=== PATIENT | female | born 1990 | race Caucasian/White ===

== ENCOUNTER 2017-02-15 19:18 | Outpatient (CLI) | payer OTHER ==
[~2017-02-15] VITALS: Ht 160 cm; Wt 83.2 kg
[~2017-02-15 19:18] MED LIST: HYDR-3240 PO; IBUP200T48 PO
== END 2017-02-15 21:49 | disposition home or self-care (01) ==
LOC: LDOP 19:18
PROVIDERS: ATTEND Obstetrics & Gynecology
DX: O42.92 Full-term premature rupture of membranes, unspecified as to length of time between rupture and onset of labor (principal); Z3A.39 39 weeks gestation of pregnancy
CPT/HCPCS: 59025; 81001; 87086; 89060; 99211; G0463; Q0114

== ENCOUNTER 2017-06-27 23:07 | Emergency (ER) | payer OTHER ==
[~2017-06-27] VITALS: Ht 160 cm; Wt 71.7 kg
[~2017-06-27 23:07] MED LIST changes: +IBUP-1222 PO; +OXYC-302 PO
[2017-06-27 23:08] VITALS: BP 133/85
[2017-06-27] MEDS ORDERED: LIDOCAINE 1%, 20ML ONE (23:18)
[2017-06-27] MEDS ORDERED: DIPH,PERTUSS(ACELL),TET VAC/PF 0.5 ML IM-VACC ONE ×2 (23:24→23:30)
[2017-06-27] MEDS ORDERED: LIDOCAINE 1%, 20ML INFIL ONE (23:30)
[2017-06-28] MEDS ORDERED: BACITRACIN ZINC OINT 500U/GM, 0.9 GM ONE (00:23)
[2017-06-28] MEDS ORDERED: BACITRACIN OINT 500U/GM, 15 GM TP PRN (00:30)
== END 2017-06-28 00:30 | disposition home or self-care (01) ==
LOC: ED 23:59
DX: S61.511A Laceration without foreign body of right wrist, initial encounter (principal); W01.0XXA Fall on same level from slipping, tripping and stumbling without subsequent striking against object, initial encounter; Y93.89 Activity, other specified; Y99.8 Other external cause status; Y92.009 Unspecified place in unspecified non-institutional (private) residence as the place of occurrence of the external cause
CPT/HCPCS: 13121; 90471; 90715

== ENCOUNTER 2017-07-04 14:41 | Observation (INO) | payer OTHER ==
[~2017-07-04] VITALS: Ht 160 cm; Wt 75.0 kg
[2017-07-04] MEDS ORDERED: SODIUM CHLORIDE FLUSH 10ML SYR IVF ONE (15:00)
[2017-07-04] MEDS ORDERED: ONDANSETRON 2MG/ML, 2ML IVPush ONE (15:00)
[2017-07-04] MEDS ORDERED: ONDANSETRON 2MG/ML, 2ML ONE ×2 (15:02→20:10)
[2017-07-04 15:13] LABS: HEMATOCRIT 43.5 % (34.6-47.8); HEMOGLOBIN 15.3 g/dL (11.7-16.4); WHITE BLOOD COUNT 5.9 x10^3/uL (3.4-10)
[2017-07-04 15:23] LABS: ASPARTATE AMINO TRANSFERASE 105 U/L (15-37); BLOOD UREA NITROGEN 15 mg/dL (7-18)
[2017-07-04] MEDS ORDERED: morphine SULFATE 10 MG/ML, 1ML IVPush PRN ×2 (16:30→21:30)
[2017-07-04] MEDS ORDERED: SODIUM CHLORIDE 0.9% 1,000 ML IV ONE (17:25)
[2017-07-04] MEDS ORDERED: SODIUM CHLORIDE FLUSH 10ML SYR IVF PRN (17:30)
[2017-07-04] MEDS ORDERED: ONDANSETRON 2MG/ML, 2ML IVPush PRN ×3 (17:30→21:30)
[2017-07-04] MEDS ORDERED: MORPHINE SULFATE 4 MG/ML, 1ML IVPush PRN (17:30)
[2017-07-04] MEDS ORDERED: PROPOFOL 10 MG/ML, 20ML ONE ×2 (18:47→20:10)
[2017-07-04] MEDS ORDERED: NEOSTIGMINE 1 MG/ML, 10ML ONE ×4 (18:48→20:10)
[2017-07-04] MEDS ORDERED: ROCURONIUM 10 MG/ML,10ML ONE ×2 (18:49→20:10)
[2017-07-04] MEDS ORDERED: GLYCOPYRROLATE 0.4 MG/2 ML, 2ML ONE (18:49)
[2017-07-04] MEDS ORDERED: SUCCINYLCHOLINE 20 MG/ML, 10ML ONE ×2 (18:49→20:10)
[2017-07-04 18:55] VITALS: BP 112/77
[2017-07-04] MEDS ORDERED: EPINEPHRINE 1 MG/ML, 1ML ONE (19:53)
[2017-07-04] MEDS ORDERED: BUPIVACAINE/PF 0.25% ONE (19:53)
[2017-07-04] MEDS ORDERED: FENTANYL PF 100 MCG/2ML ONE ×3 (19:54→21:31)
[2017-07-04] MEDS ORDERED: MIDAZOLAM 1 MG/ML, 2ML ONE ×2 (19:54→20:10)
[2017-07-04] MEDS ORDERED: CEFOTETAN 2 GM ONE (20:10)
[2017-07-04] MEDS ORDERED: GLYCOPYRROLATE 0.2MG/1ML, 5ML ONE (20:10)
[2017-07-04] MEDS ORDERED: DEXAMETHASONE 4 MG/ML, 1ML ONE (20:10)
[2017-07-04] MEDS ORDERED: CEFOTETAN PMX 2GM/50ML 50 ML ONE (20:20)
[2017-07-04] MEDS ORDERED: ACETAMINOPHEN 325 MG TABLET PO PRN (20:30)
[2017-07-04] MEDS ORDERED: PROMETHAZINE 25 MG/ML, 1ML IV PRN (20:30)
[2017-07-04] MEDS ORDERED: MEPERIDINE/PF 25MG/0.5ML IVPush PRN (20:30)
[2017-07-04] MEDS ORDERED: HYDROmorphone 1 MG/ML, 1ML IV PRN (20:30)
[2017-07-04] MEDS ORDERED: OXYcodone 5 MG/5 ML ORAL.SOL UDC PO PRN (20:30)
[2017-07-04] MEDS ORDERED: BUPIVACAINE/PF-EPI 0.25% 1:200K IM ONE (20:34)
[2017-07-04] MEDS ORDERED: DIPHENHYDRAMINE 25 MG CAPSULE PO PRN (21:30)
[2017-07-04] MEDS ORDERED: ACETAMINOPHEN 650 MG/20.3 ML UDC PO PRN (21:30)
[2017-07-04] MEDS ORDERED: OXYcodone 5 MG/5 ML ORAL.SOL UDC ONE (21:31)
[2017-07-04] MEDS: FENTANYL PF 100 MCG/2ML IV PRN ×3 (21:41→22:47)
[2017-07-04 22:30] VITALS: BP 115/69
[2017-07-05 04:50] VITALS: BP 104/57
[2017-07-05 05:18] LABS: HEMATOCRIT 42.6 % (34.6-47.8); WHITE BLOOD COUNT 10.3 x10^3/uL (3.4-10)
[2017-07-05 05:31] LABS: BLOOD UREA NITROGEN 11 mg/dL (7-18)
[2017-07-05] MEDS: POTASSIUM CHLORIDE 20 MEQ in D5%-0.45% NACL 1,000 ML IV SCH ×2 (06:43→07:22)
[2017-07-05 07:05] VITALS: BP 116/63
[2017-07-05 08:43] VITALS: BP 105/66
[2017-07-05 10:12] VITALS: BP 105/66
[2017-07-05] MEDS ORDERED: ONDA4TAB7 PO (10:22)
[2017-07-05] MEDS ORDERED: HYDR-3241 PO (10:22)
== END 2017-07-05 10:28 | disposition home or self-care (01) ==
LOC: ED 15:47 → EDIP 17:25 → INTOOBSV 17:25 → 3NE 18:15 → 4NOR 22:51 → DCLOUNGE 07-05 10:20
PROVIDERS: ADMIT Surgery; ATTEND Surgery
DX: K80.20 Calculus of gallbladder without cholecystitis without obstruction (principal); R11.2 Nausea with vomiting, unspecified
CPT/HCPCS: 36415; 47562; 76700; 80048; 80053; 81003; 82040; 83690; 84703; 85025; 88304; 96361; 96374; 99285; G0378; J0330; J1100; J2250; J2270; J2405; J2704; J2710; J3010; J3480; J0171; J3490; S0074

== ENCOUNTER 2017-10-24 22:48 | Emergency (ER) | payer BC, OTHER ==
[~2017-10-24] VITALS: Ht 160 cm; Wt 74.2 kg
[~2017-10-24 22:48] MED LIST changes: +HYDR-3241 PO; -IBUP200T48 PO; +IBUP200T49 PO; +ONDA4TAB7 PO
[2017-10-24 22:51] VITALS: BP 131/85
[2017-10-24] MEDS ORDERED: IBUPROFEN 200 MG TABLET ONE (23:20)
[2017-10-24] MEDS ORDERED: DIAZEPAM 5 MG TABLET ONE (23:20)
[2017-10-24] MEDS ORDERED: DIAZEPAM 5 MG TABLET PO ONE (23:30)
[2017-10-24] MEDS ORDERED: IBUPROFEN 200 MG TABLET PO ONE (23:30)
== END 2017-10-25 00:53 | disposition home or self-care (01) ==
LOC: ED 10-25 00:23
DX: S39.012A Strain of muscle, fascia and tendon of lower back, initial encounter (principal); G89.11 Acute pain due to trauma; Z90.49 Acquired absence of other specified parts of digestive tract; V89.2XXA Person injured in unspecified motor-vehicle accident, traffic, initial encounter; Y93.89 Activity, other specified; Y92.410 Unspecified street and highway as the place of occurrence of the external cause; Y99.8 Other external cause status
CPT/HCPCS: 72110; 99284